=== PATIENT | female | born 1950 | race Caucasian/White ===

== ENCOUNTER 2017-05-01 05:52 | Day surgery (SDC) | payer OTHER ==
[~2017-05-01] VITALS: Ht 160 cm; Wt 71.4 kg
[~2017-05-01 05:52] MED LIST: RINGERS SOLUTION,LACTATED 1,000 ML IV ONE
[2017-05-01] MEDS ORDERED: LIDOCAINE HCL/PF 2% 5 ML VIAL IM ONE (05:53)
[2017-05-01] MEDS ORDERED: FentaNYL CITRATE-PF 100 MCG/2 ML VIAL IVP ONE (05:53)
[2017-05-01] MEDS ORDERED: SUCCINYLCHOLINE CHLORIDE 20 MG/ML 10 ML VIAL IVP ONE (05:53)
[2017-05-01] MEDS ORDERED: ROCURONIUM BROMIDE 10 MG/ML 5 ML VIAL IVP ONE ×2 (05:53)
[2017-05-01] MEDS ORDERED: METOCLOPRAMIDE HCL 5 MG/ML 2 ML VIAL IVP ONE (05:53)
[2017-05-01] MEDS ORDERED: DEXAMETHASONE SOD PHOS 4 MG/ML VIAL IVP ONE (05:53)
[2017-05-01] MEDS ORDERED: GLYCOPYRROLATE 0.2 MG/ML VIAL IM ONE (05:53)
[2017-05-01] MEDS ORDERED: ONDANSETRON HCL 4 MG/2 ML VIAL IVP ONE (05:53)
[2017-05-01] MEDS ORDERED: EPHEDrine SULFATE 50 MG/ML VIAL IM ONE (05:53)
[2017-05-01] MEDS ORDERED: NEOSTIGMINE METHYLSULFATE 1 MG/ML 10 ML VIAL IVP ONE (05:53)
[2017-05-01] MEDS ORDERED: ESMOLOL HCL 10 MG/ML 10 ML VIAL IVP ONE (05:53)
[2017-05-01] MEDS ORDERED: RINGERS SOLUTION,LACTATED 1,000 ML IV ONE (06:05)
[2017-05-01] MEDS ORDERED: METF500T4 PO (06:21)
[2017-05-01] MEDS ORDERED: HYDR25TA PO (06:21)
[2017-05-01] MEDS ORDERED: ASPI-1182 PO (06:21)
[2017-05-01] MEDS ORDERED: OMEP20 PO (06:21)
[2017-05-01] MEDS ORDERED: LOSA25TA21 PO (06:21)
[2017-05-01] MEDS ORDERED: ACET-2247 PO (06:21)
[2017-05-01 06:39] LABS: BASOPHILS % (AUTO) 0.2 % (0.0-2.0); EOSINOPHILS % (AUTO) 2.3 % (1.0-6.0); HEMATOCRIT 36.8 % (36-46); HEMOGLOBIN 12.5 g/dL (12.0-16.0); LYMPHOCYTES # (AUTO) 1.4 K/uL (1.0-4.8); MEAN CORPUSCULAR HEMOGLOBIN 25.8 pg (26.0-34.0); MEAN CORPUSCULAR HGB CONC 33.9 G/dL (31.0-37.0); MEAN CORPUSCULAR VOLUME 76 fL (80-100); MONOCYTES # (AUTO) 0.4 K/uL (0.1-1.0); MONOCYTES % (AUTO) 6.8 % (2.0-9.0); NEUTROPHILS # (AUTO) 3.3 K/uL (1.8-7.7); NEUTROPHILS % (AUTO) 63.7 % (40.0-70.0); PLATELET COUNT (AUTO) 214 K/uL (150-450); RED BLOOD CELL COUNT(AUTO) 4.84 MIL/uL (4.00-5.20); RED CELL DISTRIBUTION WIDTH 15.1 % (11.5-14.5)
[2017-05-01] MEDS ORDERED: LIDOCAINE HCL 2%/EPI 1:200,000/PF 10 ML VIAL ONE (06:48)
[2017-05-01] MEDS ORDERED: SODIUM CHLORIDE 0.9% 0 ML IV ONE (06:49)
[2017-05-01] MEDS ORDERED: IOHEXOL 240 MG/ML 20 ML VIAL ONE (06:49)
[2017-05-01] MEDS ORDERED: SODIUM CHLORIDE 0.9% 0 ML ONE (06:49)
[2017-05-01] MEDS ORDERED: GUM MASTIC/STORAX/MSAL/ALCOHOL LIQUID 0.67 ML VIAL TP ONE (06:49)
[2017-05-01] MEDS ORDERED: BUPIVACAINE HCL/PF 0.5% 30 ML VIAL ONE (06:49)
[2017-05-01 06:55] LABS: ANION GAP 10 mmol/L (8-16); CALCIUM, TOTAL 8.8 mg/dL (8.8-10.5); CARBON DIOXIDE 28 mmol/L (22-29); CHLORIDE 102 mmol/L (98-107); CREATININE 0.73 mg/dL (0.60-1.30); GLOMERULAR FILTR. RATE CALC > 60 mL/min (>60); GLUCOSE,RANDOM 110 mg/dL (70-110); POTASSIUM 3.4 mmol/L (3.5-5.1); SODIUM SERUM 140 mmol/L (136-145); UREA NITROGEN, BLOOD 22 mg/dL (7-18)
[2017-05-01 07:00] LABS: ALANINE AMINOTRANSFERASE 15 U/L (12-78); ALBUMIN 3.6 g/dL (3.4-5.0); ALKALINE PHOSPHATASE 81 U/L (46-116); ASPARTATE AMINOTRANSFERASE 17 U/L (15-37); BILIRUBIN,TOTAL 0.6 mg/dL (0.1-1.0); TOTAL PROTEIN, SERUM 8.1 g/dL (6.4-8.2)
[2017-05-01] MEDS ORDERED: MEPERIDINE-PF 25 MG/ML SYRINGE IVP PRN (07:15)
[2017-05-01] MEDS ORDERED: FentaNYL CITRATE-PF 100 MCG/2 ML VIAL IVP PRN (07:15)
[2017-05-01] MEDS ORDERED: HYDROmorphone 2 MG/ML SYRINGE IVP PRN (07:15)
[2017-05-01] MEDS ORDERED: CefoTEtan DISOD 1 GM/DEXTROSE 50 ML IV ONE (07:30)
[2017-05-01] MEDS ORDERED: OXYGEN THERAPY IH SCH (08:00)
[2017-05-01] MEDS ORDERED: ACETAMINOPHEN 500 MG TABLET PO PRN (08:15)
[2017-05-01] MEDS ORDERED: IBUPROFEN 600 MG TABLET PO PRN (08:15)
[2017-05-01] MEDS ORDERED: HYDROCODONE/ACETAMINOPHEN 5-325 MG TABLET PO PRN (08:15)
[2017-05-01] MEDS ORDERED: IBUPROFEN 800 MG TABLET PO PRN (08:24)
[2017-05-01] MEDS ORDERED: HYDROCODONE/ACETAMINOPHEN 5-325 MG TABLET ONE (09:29)
== END 2017-05-01 10:05 | disposition home or self-care (01) ==
LOC: SURGERY 05:52
PROVIDERS: ATTEND Surgery
DX: K80.10 Calculus of gallbladder with chronic cholecystitis without obstruction (principal); E11.9 Type 2 diabetes mellitus without complications; I10 Essential (primary) hypertension; E78.00 Pure hypercholesterolemia, unspecified
CPT/HCPCS: 36415; 47562; 80053; 85025; 88304; 93005; J0330; J1100; J2405; J2765; J3010; J3490 ×8; J7120; J7030; Q9966